=== PATIENT | male | born 1960 | race Caucasian/White ===

== ENCOUNTER → 2016-07-10 | Outpatient (CLI) | payer BC ==
--- NOTE | ~2016-07-10 | ST ---
Unit #: [id number] #: [id number] Patient: NASEEM JIMENEZ [id number] [facility]. [address] [address] [id number] O MR#: [id number] NAME: NASEEM JIMENEZ. : 1960 SEX: M STUDY DATE/TIME: 07/19/2016 UNIT: CEKG ROOM: STUDY DESCRIPTION: Attending Physician: Otf Mendieta Jr., M.D. Primary Care Physician: No Primary Care Physician CARDIOLOGY REPORT EXAM Regular treadmill stress test. FINDINGS Resting heart rate is 47. Resting blood pressure is 125/76 mmHg. Baseline EKG shows sinus bradycardia, poor R-wave progression. No significant ST-T wave changes. PROCEDURE Patient was made to exercise on a standard Andrae protocol. Total exercise time is 11 minutes and 31 seconds completing 2 minutes and 31 seconds of stage 4 on a standard Andrae protocol. Test stopped because target heart rate achieved. Maximal heart rate obtained is 141 which is 85% of maximal predicted heart rate. Maximal blood pressure obtained is 172/90 mmHg. The patient had 0.[address]-T wave changes noted in the inferior and the anterolateral leads. No arrhythmias seen. CONCLUSION 1. Good baseline exercise tolerance. 2. There is nonspecific ST-T wave changes noted. 3. The patient did not have any clinical or hemodynamic evidence of ischemia at good workload (85% of maximal predicted heart rate, 12.8 METs). 4. Normal heart rate and blood pressure response. 5. Normal regular treadmill stress test. Dictated by..Yojana Samuel TD: 07/19/2016 16:59 JOB #: [id number] CC: Otf Mendieta Jr., M.D. Unit #: [id number] #: [id number] Patient: NASEEM JIMENEZ CARDIOLOGY REPORT X Susan Scanlon MD <ELECTRONICALLY SIGNED> 12/02/16 1429 CARDIOLOGY REPORT
== END | disposition home or self-care (01) ==
LOC: CEKG 07:33
DX: I25.10 Atherosclerotic heart disease of native coronary artery without angina pectoris (principal)
CPT/HCPCS: 93017